=== PATIENT | male | born 1990 | race African-American/Black ===

== ENCOUNTER 2023-12-09 23:49 | Emergency (ER) | payer OTHER ==
[2023-12-10] MEDS ORDERED: Bupivacaine 0.25% 10 ML VIAL ONE (00:06)
[2023-12-10] MEDS ORDERED: Bupivacaine PF 0.5% 30 ML VIAL ONE (00:07)
[2023-12-10] MEDS ORDERED: Boostrix 0.5 ML (Tdap) VIAL (>/=7 yrs of age) ONE (00:18)
[2023-12-10] MEDS ORDERED: Amoxicillin/Potassium Clav 875 MG TAB ONE (00:31)
[2023-12-10] MEDS ORDERED: Ibuprofen 800 MG TAB ONE (00:32)
== END 2023-12-10 01:25 | disposition home or self-care (01) ==
LOC: ERS 23:49
DX: S61.452A Open bite of left hand, initial encounter (principal); S61.213A Laceration without foreign body of left middle finger without damage to nail, initial encounter; E11.9 Type 2 diabetes mellitus without complications; B20 Human immunodeficiency virus [HIV] disease; W54.0XXA Bitten by dog, initial encounter
CPT/HCPCS: 90471; 90715; J0665

== ENCOUNTER 2023-12-17 15:37 | Emergency (ER) | payer OTHER | END 2023-12-17 16:10 | disposition home or self-care (01) | LOC: ERS 15:37 | DX: S61.213D Laceration without foreign body of left middle finger without damage to nail, subsequent encounter (principal); E11.9 Type 2 diabetes mellitus without complications ==